=== PATIENT | female | born 1955 | race Two or more races ===

== ENCOUNTER 2021-10-16 15:53 | Emergency (ER) | payer OTHER ==
[~2021-10-16] VITALS: Ht 157.5 cm; Wt 90.7 kg
--- NOTE | 2021-10-16 16:20 | NUR ---
BIBS C/O LEFT SHOULDER PAIN, PT SLIPPED AND FELL FOWARD. ABRASION ON NOSE NOTED. VITALS ARE WITHIN NORMAL LIMITS. AWAITING MD ORDERS.
[2021-10-16] MEDS ORDERED: HYDR-4275 PO (17:08)
--- NOTE | 2021-10-16 17:57 | NUR ---
Patient discharged to home in stable condition. Written and verbal after care instructions given. Patient verbalizes understanding of instruction.
[2021-10-16 17:58] VITALS: BP 141/72
== END 2021-10-16 17:58 | disposition home or self-care (01) ==
LOC: ER 15:59
DX: S42.252A Displaced fracture of greater tuberosity of left humerus, initial encounter for closed fracture (principal); S00.31XA Abrasion of nose, initial encounter; I10 Essential (primary) hypertension; E11.9 Type 2 diabetes mellitus without complications; Z79.899 Other long term (current) drug therapy; W01.0XXA Fall on same level from slipping, tripping and stumbling without subsequent striking against object, initial encounter; Y93.89 Activity, other specified; Y92.89 Other specified places as the place of occurrence of the external cause; Y99.8 Other external cause status
CPT/HCPCS: 73030-TC; 73080-TC

== ENCOUNTER 2024-06-18 09:34 | Emergency (ER) | payer MEDICARE, OTHER ==
[~2024-06-18] VITALS: Ht 157.5 cm; Wt 104.3 kg
[~2024-06-18 09:34] MED LIST: HYDR-4275 PO
[2024-06-18 09:42] VITALS: BP 172/96; TEMP 98.1; O2SAT 99
[2024-06-18] MEDS ORDERED: METH4TAB17 PO (10:09)
== END 2024-06-18 10:12 | disposition home or self-care (01) ==
LOC: ER 09:43
DX: L23.9 Allergic contact dermatitis, unspecified cause (principal); E11.9 Type 2 diabetes mellitus without complications; I10 Essential (primary) hypertension